=== PATIENT | female | born 1960 | race Caucasian/White ===

== ENCOUNTER → 2017-08-08 | Outpatient (CLI) | payer BC ==
--- NOTE | 2017-08-08 11:37 | MM ---
Reason for exam: screening (asymptomatic). Last mammogram was performed 1 year and 2 months ago. History: Patient is postmenopausal and is nulliparous. Took hormonal contraceptives for 22 years 4 months beginning at age 30. Physical Findings: A clinical breast exam by your physician is recommended on an annual basis and results should be correlated with mammographic findings. MG Screening Mammo w CAD Bilateral CC and MLO view(s) were taken. Prior study comparison: May 24, 2016, bilateral MG screening mammo w CAD. November 23, 2014, bilateral MG screening mammo w CAD. The breast tissue is heterogeneously dense. This may lower the sensitivity of mammography. There is chronic nodularity bilaterally. There is no discrete abnormality. ASSESSMENT: Benign, BI-RAD 2 RECOMMENDATION: Routine screening mammogram of both breasts in 1 year.
== END | disposition home or self-care (01) ==
LOC: RADMAMWWP 07:16
PROVIDERS: ATTEND Obstetrics & Gynecology
DX: Z12.31 Encounter for screening mammogram for malignant neoplasm of breast (principal)

== ENCOUNTER → 2018-01-18 | Outpatient (CLI) | payer BC ==
--- NOTE | 2018-01-18 10:41 | US ---
EXAMINATION TYPE: US thyroid st tissue head/neck DATE OF EXAM: 01/18/2018 COMPARISON: US CLINICAL HISTORY: E04.1 Thyroid Nodule. GLAND SIZE: Right Lobe: 4.9 x 1.6 x 1.2 cm Overall Parenchyma: homogenous Left Lobe: 3.8 x 1.0 x 1.0 cm Overall Parenchyma: homogeneous Isthmus Thickness: 2.2 cm NODULES RIGHT: # of nodules measured on right: 0 LEFT: # of nodules measured on left: 2 1. 0.6 X 0.4 x 0.4 cm isoechoic solid nodule at the upper pole with well-defined margins. This nod ule is wide as is tall and shows intranodular vascularity. Prior size: none seen 2. 0.5 X 0.5 x 0.4 cm hypoechoic mixed nodule at the upper pole with well-defined margins. This nod ule is wider than tall and shows intranodular vascularity. Prior size: none seen ISTHMUS: # of nodules measured in the isthmus: 1 1. 4.2 X 3.7 x 2.4 cm mixed nodule at the isthmus with well-defined margins. This nodule is wider than tall and shows intranodular vascularity. Prior size: 3.5 x 2.1 x 3.3 cm Bilateral neck scanned, no evidence of lymphadenopathy. IMPRESSION: Nonspecific thyroid nodularity. The need to biopsy should be made on a clinical basis.
== END | disposition home or self-care (01) ==
LOC: RADUSWWP 09:51
PROVIDERS: ATTEND Otolaryngology
DX: E04.2 Nontoxic multinodular goiter (principal)
CPT/HCPCS: 36415; 76536; 84443

== ENCOUNTER → 2018-08-14 | Outpatient (CLI) | payer BC | END | disposition home or self-care (01) | LOC: LABWHC1 10:53 | PROVIDERS: ATTEND Otolaryngology | DX: E04.1 Nontoxic single thyroid nodule (principal) | CPT/HCPCS: 36415; 84443 ==

== ENCOUNTER → 2018-08-14 | Outpatient (CLI) | payer BC ==
--- NOTE | 2018-08-15 14:03 | MM ---
Reason for exam: screening (asymptomatic). Last mammogram was performed 1 year ago. History: Patient is postmenopausal and is nulliparous. Took hormonal contraceptives for 22 years 4 months beginning at age 30. Physical Findings: A clinical breast exam by your physician is recommended on an annual basis and results should be correlated with mammographic findings. MG Screening Mammo w CAD Bilateral CC and MLO view(s) were taken. Prior study comparison: August 08, 2017, bilateral MG screening mammo w CAD. May 24, 2016, bilateral MG screening mammo w CAD. The breast tissue is heterogeneously dense. This may lower the sensitivity of mammography. No suspicious abnormality. No significant changes when compared with prior studies. ASSESSMENT: Negative, BI-RAD 1 RECOMMENDATION: Routine screening mammogram of both breasts in 1 year.
== END | disposition home or self-care (01) ==
LOC: RADMAMWWP 10:39
PROVIDERS: ATTEND Obstetrics & Gynecology
DX: Z12.31 Encounter for screening mammogram for malignant neoplasm of breast (principal)
CPT/HCPCS: 77067

== ENCOUNTER → 2018-12-09 | Outpatient (CLI) | payer BC ==
--- NOTE | 2018-12-09 07:58 | US ---
EXAMINATION TYPE: US thyroid st tissue head/neck DATE OF EXAM: 12/09/2018 COMPARISON: Thyroid ultrasound January 18, 2018 and older ultrasounds. CLINICAL HISTORY: E04.1 Thyroid Nodule. follow up exam, patient states previous bx on nodule, not on meds GLAND SIZE: Right Lobe: 4.9 x 1.1 x 1.6 cm Overall Parenchyma: homogenous Left Lobe: unable to discern Isthmus Thickness: 0.7 cm NODULES RIGHT: # of nodules measured on right: 0 LEFT: # of nodules measured on left: unable to discern due to large size of isthmus nodule ISTHMUS: # of nodules measured in the isthmus: 1 1. 5.1 X 4.4 x 2.8 cm solid nodule with well-defined margins. This nodule is wider than tall and sh ows intranodular vascularity. Prior size: 4.2 x 3.7 x 2.4 cm Bilateral neck scanned, no evidence of lymphadenopathy. IMPRESSION: Continued enlargement of dominant left-sided isthmus nodule measuring up to 5.1 cm long axis versus 4 .2 cm 2017 and 3.1 cm 2011, last sampling was performed 2011. Consider repeat FNA.
== END | disposition home or self-care (01) ==
LOC: RADUSWWP 06:52
PROVIDERS: ATTEND Otolaryngology
DX: E04.1 Nontoxic single thyroid nodule (principal)
CPT/HCPCS: 76536

== ENCOUNTER 2019-01-09 09:11 | Day surgery (SDC) | payer BC ==
[2019-01-09 09:33] VITALS: TEMP 98.5
[2019-01-09 10:54] VITALS: BP 133/76; PULSE 84; RESP 16
--- NOTE | 2019-01-09 12:03 | US ---
EXAMINATION TYPE: US FNA thyroid first lesion DATE OF EXAM: 01/09/2019 COMPARISON: Ultrasound thyroid 12/09/2017 HISTORY: Thyroid nodule, E04.1 Maximal barrier technique was utilized. Ultrasound using sterile technique. The skin overlying the no dule was localized with ultrasound and the overlying skin prepped and draped. Lidocaine used for loca l anesthesia. 5 passes with a 25-gauge needle were made into the nodule under ultrasound guidance. As pirate specimen submitted to cytology. Following the procedure hemostasis achieved. No immediate comp lication IMPRESSION: Status post ultrasound-guided fine-needle aspiration of thyroid nodule in the isthmus, derek thology pending.
== END 2019-01-09 10:53 | disposition home or self-care (01) ==
LOC: RADPROMAIN 09:11
PROVIDERS: ATTEND Otolaryngology
DX: E04.1 Nontoxic single thyroid nodule (principal)
CPT/HCPCS: 10005; 88173; 88305

== ENCOUNTER → 2019-07-30 | Outpatient (CLI) | payer BC ==
--- NOTE | 2019-07-30 08:58 | US ---
EXAMINATION TYPE: US thyroid st tissue head/neck DATE OF EXAM: 07/30/2019 COMPARISON: Thyroid ultrasound dated 12/09/2018 CLINICAL HISTORY: E04.1 Thyroid nodule. Follow up nodule GLAND SIZE: Right Lobe: 5.0 x 1.6 x 1.6 cm Overall Parenchyma: heterogenous Left Lobe: 3.8 x 1.3 x 1.2 cm Overall Parenchyma: heterogeneous Isthmus Thickness: 0.8 cm NODULES RIGHT: # of nodules measured on right: 0 LEFT: # of nodules measured on left: 0 ISTHMUS: # of nodules measured in the isthmus: 1 1. 4.8 X 4.4 x 2.5 cm Complex nodule with well-defined margins. This nodule is wider than tall an d shows intranodular vascularity. Prior size: 5.1 x 4.4 x 2.8 cm Bilateral neck scanned, no evidence of lymphadenopathy. Bilateral lobes appear hypervascular IMPRESSION: Similar size of the complex right thyroid nodule, appearing to have been biopsied on the exam of 2018. The thyroid gland does appear heterogenous throughout and hypervascular. Correlate for thyroidi tis.
== END | disposition home or self-care (01) ==
LOC: RADUSWWP 07:04
PROVIDERS: ATTEND Otolaryngology
DX: E04.1 Nontoxic single thyroid nodule (principal)
CPT/HCPCS: 76536

== ENCOUNTER → 2019-08-14 | Outpatient (CLI) | payer BC | LOC: LABWHC1 08:15 | PROVIDERS: ATTEND Otolaryngology | DX: E04.1 Nontoxic single thyroid nodule (principal) | CPT/HCPCS: 36415; 84443 ==

== ENCOUNTER → 2019-10-14 | Outpatient (CLI) | payer BC ==
--- NOTE | 2019-10-15 11:51 | MM ---
Reason for exam: screening (asymptomatic). Last mammogram was performed 1 year and 2 months ago. History: Patient is postmenopausal and is nulliparous. Took hormonal contraceptives for 22 years 4 months beginning at age 30. Physical Findings: A clinical breast exam by your physician is recommended on an annual basis and results should be correlated with mammographic findings. MG Screening Mammo w CAD Bilateral CC and MLO view(s) were taken. Prior study comparison: August 14, 2018, bilateral MG screening mammo w CAD. August 08, 2017, bilateral MG screening mammo w CAD. The breast tissue is heterogeneously dense. This may lower the sensitivity of mammography. No suspicious abnormality. No significant changes when compared with prior studies. ASSESSMENT: Negative, BI-RAD 1 RECOMMENDATION: Routine screening mammogram of both breasts in 1 year.
== END | disposition home or self-care (01) ==
LOC: RADMAMWWP 06:56
PROVIDERS: ATTEND Obstetrics & Gynecology
DX: Z12.31 Encounter for screening mammogram for malignant neoplasm of breast (principal)
CPT/HCPCS: 77067

== ENCOUNTER → 2020-07-23 | Outpatient (CLI) | payer BC ==
[2020-07-23 16:05] LABS: Chol/HDL Ratio 3.38; LDL Cholesterol,Calculated 110.4 mg/dL (0.0-131.0); VLDL Calculation 27.6 mg/dL (5.00-40.00)
== END | disposition home or self-care (01) ==
LOC: LABWHC1 09:11
PROVIDERS: ATTEND Internal Medicine
DX: I83.813 Varicose veins of bilateral lower extremities with pain (principal); G47.33 Obstructive sleep apnea (adult) (pediatric); M79.89 Other specified soft tissue disorders; Z82.49 Family history of ischemic heart disease and other diseases of the circulatory system; R06.00 Dyspnea, unspecified
CPT/HCPCS: 36415; 80061

== ENCOUNTER → 2020-10-25 | Outpatient (CLI) | payer MEDICARE ==
--- NOTE | 2020-10-25 08:12 | US ---
EXAMINATION TYPE: US thyroid st tissue head/neck DATE OF EXAM: 10/25/2020 COMPARISON: 07/30/2019 CLINICAL HISTORY: 59-year-old female E04.1 thyroid nodule. History of single large nodule, no symptom s per patient TECHNIQUE: Multiple sonographic images of the thyroid gland are obtained. FINDINGS: GLAND SIZE: Right Lobe: 5.0 x 1.1 x 1.9 cm Overall Parenchyma: homogenous Left Lobe: 5.3 x 6.1 x 3.5 cm Overall Parenchyma: heterogeneous Isthmus Thickness: 1.1 cm (thickened) NODULES RIGHT: # of nodules measured on right: 0 LEFT: # of nodules measured on left: At the left isthmus 1. 4.5 X 5.2 x 3.1 cm solid or almost completely solid, nodule, heterogeneous isoechoic nodule whic h is wider than tall, with smooth margins, without echogenic foci. Prior size: 4.8 x 4.4 x 2.8 cm ISTHMUS: # of nodules measured in the isthmus: 0 Bilateral neck scanned, no evidence of lymphadenopathy. IMPRESSION: 1. Thyromegaly with mild heterogeneous parenchyma. Correlate for goiter. 2. Dominant large 5.2 x 4.5 cm TR3 left isthmic nodule shows slight increase in size (previously 4.8 x 4.4 cm).
== END | disposition home or self-care (01) ==
LOC: RADUSWWP 07:34
PROVIDERS: ATTEND Otolaryngology
DX: E04.2 Nontoxic multinodular goiter (principal)
CPT/HCPCS: 76536

== ENCOUNTER → 2020-11-03 | Outpatient (CLI) | payer MEDICARE ==
[~2020-11-03] MED LIST: REGADENOSON 0.4 MG/5 ML SYRINGE IV PRN
--- NOTE | 2020-11-03 10:42 | ECHOF ---
Referral Reason:G47.33 NATACHA, J45.998 Allergy induced asthma MEASUREMENTS -------- HEIGHT: 172.7 cm WEIGHT: 83.9 kg BP: RVIDd: 2.7 cm (< 3.3) IVSd: 1.1 cm (0.6 - 1.1) LVIDd: 4.0 cm (3.9 - 5.3) LVPWd: 1.1 cm (0.6 - 1.1) IVSs: 1.8 cm LVIDs: 2.1 cm LVPWs: 1.7 cm LAESV Index (A-L): 16.48 ml/m Ao Diam: 2.9 cm (2.0 - 3.7) AV Cusp: 2.0 cm (1.5 - 2.6) LA Diam: 2.7 cm (2.7 - 3.8) MV EXCURSION: 26.030 mm (> 18.000) MV EF SLOPE: 95 mm/s (70 - 150) EPSS: 0.5 cm MV E Hollis: 0.97 m/s MV DecT: 213 ms MV A Hollis: 0.85 m/s MV E/A Ratio: 1.14 RAP: 5.00 mmHg RVSP: 16.30 mmHg FINDINGS -------- This was a technically good study. The left ventricular size is normal. Left ventricular wall thickness is normal. Overall left vent ricular systolic function is normal with, an EF between 55 - 60 %. The diastolic filling pattern is normal for the age of the patient 11.63. False Tendon Visualized in the LV The right ventricle is normal in size. The left atrial size is normal. Normal LA size by volume 22+/-6 ml/m2. The right atrial size is normal. Interatrial and interventricular septum intact. The aortic valve is trileaflet and appears structurally normal. The mitral valve is normal. The mitral valve leaflets are mildly thickened. There is trace mitral regurgitation. The tricuspid valve appears structurally normal. Trace tricuspid regurgitation present. Right yeimy tricular systolic pressure is normal at < 35 mmHg. There is no pulmonic regurgitation present. The aortic root size is normal. Normal inferior vena cava with normal inspiratory collapse consistent with estimated right atrial pre ssure of 5 mmHg. There is no pericardial effusion. CONCLUSIONS -------- 1. The left ventricular size is normal. 2. Left ventricular wall thickness is normal. 3. Overall left ventricular systolic function is normal with, an EF between 55 - 60 %. 4. The diastolic filling pattern is normal for the age of the patient 11.63 5. False Tendon Visualized in the LV 6. The mitral valve leaflets are mildly thickened. 7. There is trace mitral regurgitation. 8. Trace tricuspid regurgitation present. 9. There is no pericardial effusion. CLINICAL CYTOGENETICS DIRECTOR: Charlee Meier RDCS
--- NOTE | 2020-11-03 11:10 | NM ---
EXAMINATION TYPE: NM stress lexiscan cardiolite DATE OF EXAM: 11/03/2020 COMPARISON: NONE HISTORY: G 47.33, J 45.998 TECHNIQUE: After the intravenous administration of 9.4 mCi Tc 99m Sestamibi - Cardiolite resting SPE CT images acquired 50 minutes post injection. The patient received 0.4mg Lexiscan, 25.3 mCi Tc 99m Sestamibi - Stress images obtained [address] injection FINDINGS: Review of stress and rest SPECT images demonstrates mild decreased uptake along anterior wall left ve ntricle on stress as compared to rest images. Gated analysis shows a questionable paradoxical apical wall motion with an estimated left ventricular ejection fraction of 56 %. IMPRESSION: Pharmacologically induced left ventricular myocardial ischemia, consider echocardiogram for correlati on for wall motion. A Yellow level critical message alert has been initiated for Torsten Moody DO via the [employer] Critical Results System on 11/03/2020 11:07 AM. This message alert has been sent to Torsten Moody DO vi a the preferences provided by the clinician for the receipt of Radiology Critical Findings. Message I D [id number].
--- NOTE | 2020-11-03 11:34 | EST ---
EXERCISE STRESS AGE: 59 SEX: Female HT: 5'8" WT: 185 lbs. PROTOCOL: Lexiscan STAGE: N/A DURATION OF EXERCISE: N/A HEART RATE REST: 59 BLOOD PRESSURE REST: 128/66 MAXIMUM HEART RATE ACHIEVED: 89 MAXIMUM BLOOD PRESSURE: 128/66 85% MPHR: 138 100% MPHR: 162 METS: N/A INDICATIONS: Chest pain. CLINICAL INFORMATION: Baseline EKG shows sinus rhythm, normal axis, normal intervals. Patient was given intravenous Lexiscan as per protocol. Did not have chest pain or diagnostic ST-segment depression. CONCLUSIONS: 1. Negative stress test by EKG criteria. 2. Cardiolite portion of the stress test will be reported separately. MMODL / IJN: [id number] /
== END | disposition home or self-care (01) ==
LOC: RADNMMAIN 07:44
PROVIDERS: ATTEND Family Medicine
DX: I05.8 Other rheumatic mitral valve diseases (principal); I25.9 Chronic ischemic heart disease, unspecified; G47.33 Obstructive sleep apnea (adult) (pediatric); J45.998 Other asthma; Z88.2 Allergy status to sulfonamides
CPT/HCPCS: 93017; 93306; 78452; A9500; J2785

== ENCOUNTER → 2020-12-03 | Outpatient (CLI) | payer MEDICARE ==
--- NOTE | 2020-12-06 10:16 | MM ---
Reason for exam: screening (asymptomatic). Last mammogram was performed 1 year and 2 months ago. History: Patient is postmenopausal and is nulliparous. Took hormonal contraceptives for 22 years 4 months beginning at age 30. Physical Findings: A clinical breast exam by your physician is recommended on an annual basis and results should be correlated with mammographic findings. MG 3D Screening Mammo W/Cad Bilateral CC and MLO view(s) were taken. Prior study comparison: October 14, 2019, bilateral MG screening mammo w CAD. August 14, 2018, bilateral MG screening mammo w CAD. The breast tissue is heterogeneously dense. This may lower the sensitivity of mammography. There is chronic nodularity bilaterally. There is no dominant lesion. No significant changes when compared with prior studies. ASSESSMENT: Benign, BI-RAD 2 RECOMMENDATION: Routine screening mammogram of both breasts in 1 year.
== END | disposition home or self-care (01) ==
LOC: RADMAMWWP 10:15
PROVIDERS: ATTEND Obstetrics & Gynecology
DX: Z12.31 Encounter for screening mammogram for malignant neoplasm of breast (principal)
CPT/HCPCS: 77063; 77067

== ENCOUNTER → 2021-12-19 | Outpatient (CLI) | payer MEDICARE ==
--- NOTE | 2021-12-19 07:52 | US ---
EXAMINATION TYPE: US thyroid st tissue head/neck DATE OF EXAM: 12/19/2021 COMPARISON: NONE CLINICAL HISTORY: E04.1 NONTOXIC SINGLE THYROID NODULE. follow up thyroid nodule GLAND SIZE: Right Lobe: 5.4 x 1.7 x 1.7 cm Overall Parenchyma: homogenous Left Lobe: 5.9 x 3.5 x 5.1cm Overall Parenchyma: heterogeneous Isthmus Thickness: 1.0 cm NODULES RIGHT: # of nodules measured on right: 0 LEFT: # of nodules measured on left: left isthmus 1. 4.8 X 3.1 x 5.4 cm, solid or almost completely solid, isoechoic nodule, which is wider than tall , with smooth margins, without echogenic foci. Prior size: 4.5 x 3.1x 5.2cm ISTHMUS: # of nodules measured in the isthmus: 0 Bilateral neck scanned, no evidence of lymphadenopathy. IMPRESSION: Stable predominantly solid nodule left thyroid lobe. 2017 ACR TI-RADS LEVEL: *Highest TI-RADS level nodule reported
== END | disposition home or self-care (01) ==
LOC: RADUSWWP 06:38
PROVIDERS: ATTEND Otolaryngology
DX: E04.1 Nontoxic single thyroid nodule (principal)
CPT/HCPCS: 76536

== ENCOUNTER 2022-06-23 10:01 | Day surgery (SDC) | payer MEDICARE ==
[2022-06-21 16:02] VITALS: BMI 28.1
[2022-06-23 11:00] VITALS: TEMP 97.6
[2022-06-23] MEDS: LACTATED RINGERS 1,000 ML IV SCH ×3 (11:16→13:00)
[2022-06-23] MEDS ORDERED: PROPOFOL 10 MG/ML 20 ML VIAL IV ONE (12:10)
--- NOTE | 2022-06-23 12:24 | P.PCN ---
Date of Procedure: 06/23/22 Procedure(s) Performed: BRIEF HISTORY: Patient is a 61-year-old pleasant 6 female scheduled for an elective colonoscopy as a part of screening for colorectal neoplasia. PROCEDURE PERFORMED: Colonoscopy with snare polypectomy. PREOPERATIVE DIAGNOSIS: Screening for colon cancer. IV sedation per Anesthesia. PROCEDURE: After informed consent was obtained, the patient, was brought into the endoscopy unit. IV sedation was administered by Anesthesia under continuous monitoring. Digital rectal examination was normal. Initially the Olympus CF-160 flexible video colonoscope was then inserted in the rectum, gradually advanced into the cecum without any difficulty. Careful examination was performed as the scope was gradually being withdrawn. Ileocecal valve and the appendiceal orifice were visualized and appeared normal. Prep was excellent. Mucosa of the cecum, ascending colon, transverse colon, appeared normal. In the descending colon there was a 7 mm polyp removed by snare polypectomy. Rest of the descending colon, sigmoid colon, and rectum appeared normal. Retroflexion was performed in the rectum and no lesions were seen. The patient tolerated the procedure well. IMPRESSION: 7 mm descending colon polyp status post polypectomy Rest of the colon appeared normal RECOMMENDATIONS: Findings of this examination were discussed with the patient as well as a family. She was advised to follow with the biopsy results. If the biopsies adenoma she can have a repeat colonoscopy in 5 years..
[2022-06-23 12:50] VITALS: BP 129/81; PULSE 72; RESP 18
== END 2022-06-23 13:18 | disposition home or self-care (01) ==
LOC: ORWHC2ENDO 10:01
PROVIDERS: ATTEND Internal Medicine Gastroenterology
DX: Z12.11 Encounter for screening for malignant neoplasm of colon (principal); D12.4 Benign neoplasm of descending colon; G47.33 Obstructive sleep apnea (adult) (pediatric); E04.1 Nontoxic single thyroid nodule; F41.9 Anxiety disorder, unspecified; F32.A Depression, unspecified; Z88.2 Allergy status to sulfonamides; Z79.899 Other long term (current) drug therapy
CPT/HCPCS: 88305; 45385; J2704

== ENCOUNTER → 2023-02-13 | Outpatient (CLI) | payer MEDICARE ==
--- NOTE | 2023-02-13 08:32 | US ---
EXAMINATION TYPE: US thyroid st tissue head/neck DATE OF EXAM: 02/13/2023 COMPARISON: 12/19/2021 CLINICAL INDICATION: Female, 62 years old with history of E04.1 SINGLE THYROID NODULE; Follow up thyr oid nodule GLAND SIZE: Right Lobe: 4.9 x 1.7 x 1.9 cm Overall Parenchyma: homogenous Left Lobe: 6.4 x 3.4 x 3.4 cm Overall Parenchyma: heterogenous Isthmus Thickness: 0.5 cm NODULES RIGHT: # of nodules measured on right: 0 LEFT: # of nodules measured on left: left isthmus 1. 5.1 X 3.9 x 6.2 cm, , solid or almost completely solid, isoechoic TR 3 nodule, which is wider th an tall, with smooth margins, without echogenic foci. Prior size: 4.8 x 3.1 x 5.4 cm ISTHMUS: # of nodules measured in the isthmus: 0 Bilateral neck scanned, no evidence of lymphadenopathy. IMPRESSION: Enlarging solid TR3 nodule in the left thyroid isthmus currently measuring 6.2 x 5.1 cm (versus 5.4 x 4.8 cm, previously). This meets criteria for FNA.
== END | disposition home or self-care (01) ==
LOC: RADUSWWP 06:59
PROVIDERS: ATTEND Otolaryngology
DX: E04.1 Nontoxic single thyroid nodule (principal)
CPT/HCPCS: 76536

== ENCOUNTER → 2023-02-13 | Outpatient (CLI) | payer MEDICARE ==
--- NOTE | 2023-02-13 08:15 | MM ---
Reason for Exam: Screening (asymptomatic). Last mammogram was performed 1 year(s) and 1 month(s) ago. Patient History: Menarche at age 13. Patient has no children. Postmenopausal. Hormonal Contraceptives for 22 years, 4 months, until age 49. Risk Values: Lauren 5 year model risk: 1.6%. NCI Lifetime model risk: 7.9%. Prior Study Comparison: 10/14/2019 Bilateral Screening Mammogram, [facility]. 12/03/2020 Bilateral Screening Mammogram, [facility]. 01/17/2022 Bilateral Screening Mammogram, [facility]. Tissue Density: The breast tissue is heterogeneously dense. This may lower the sensitivity of mammography. Findings: Analyzed By CAD. There is no suspicious group of microcalcifications or new suspicious mass in either breast. Overall Assessment: Negative, BI-RAD 1 Management: Screening Mammogram of both breasts in 1 year. . Patient should continue monthly self-breast exams. A clinical breast exam by your physician is recommended on an annual basis. This exam should not preclude additional follow-up of suspicious palpable abnormalities. Note on Lauren scores and lifetime risk: 1. A Lauren score greater than 3% is considered moderate risk. If this is the case, consider specialist referral to assess eligibility for a risk reducing agent. 2. If overall lifetime risk for the development of breast cancer is 20% or higher, the patient may qualify for future screening with alternating mammogram and breast MRI. Electronically signed and approved by: Randall Keating M.D. Radiologis
== END | disposition home or self-care (01) ==
LOC: RADMAMWWP 06:57
PROVIDERS: ATTEND Obstetrics & Gynecology
DX: Z12.31 Encounter for screening mammogram for malignant neoplasm of breast (principal); Z78.0 Asymptomatic menopausal state
CPT/HCPCS: 77063; 77067

== ENCOUNTER → 2023-04-04 | Outpatient (CLI) | payer MEDICARE ==
--- NOTE | 2023-04-04 13:50 | CT ---
EXAMINATION TYPE: CT chest w con DATE OF EXAM: 04/04/2023 COMPARISON: Radiographs 03/28/2023, thyroid ultrasound 02/13/2023 HISTORY: 62-year-old female R05.3, chronic cough Chronic cough. TECHNIQUE: Contiguous axial scanning of the chest after the administration of 100ml mL of Isovue 300. Coronal/sagittal reconstructions performed. CT DLP: 298.6mGycm. Automatic exposure control utilized for a dose reduction. FINDINGS: Nodular enlargement of the thyroid gland especially the left lobe. Please refer to thyroid ultrasound report from 02/13/2023. Heart normal size without pericardial effusion. Prominent epicardial fat pad along the right side of the heart. Aorta normal size. Bovine configuration to the aortic arch. No thoracic lymphadenopathy by CT size criteria. Some strandy atelectasis at the lung bases. Nodularity at the anteromedial right lower lung measuring 8 mm. A couple of satellite nodules here measure up to 4 mm. No consolidation or pleural effusion. Visualized upper abdomen shows no gross abnormality. Bones: No osseous destructive process. IMPRESSION: 1. Some nodularity at the anteromedial right lower lung measuring up to 8 mm. Recommended 3-6 month f ollow-up CT chest to reassess. 2. Some strandy atelectasis at the lung bases. No infiltrate to indicate pneumonia. 3. Refer to findings on thyroid ultrasound of 02/13/2023 for potential further intervention.
== END | disposition home or self-care (01) ==
LOC: RADCTMAIN 09:19
PROVIDERS: ATTEND Internal Medicine
DX: R91.1 Solitary pulmonary nodule (principal); R05.3 Chronic cough
CPT/HCPCS: 71260; Q9967

== ENCOUNTER → 2023-08-03 | Outpatient (CLI) | payer MEDICARE ==
--- NOTE | 2023-08-03 09:59 | CT ---
EXAMINATION TYPE: CT soft tissue neck w con DATE OF EXAM: 08/03/2023 COMPARISON: None HISTORY: 62 year-old female E04.9, nontoxic goiter TECHNIQUE: Contiguous axial scanning of the soft tissues of the neck performed with IV Contrast, carey ent injected with 100 mL of Isovue 300. Coronal/sagittal reconstructions performed. CT DLP: 510.7 mGycm Automated exposure control for dose reduction was used. FINDINGS: Marked heterogeneous enlargement of the thyroid gland. Difficult to delineate discrete nodules due to the degree of heterogeneity. Suspect left-sided nodule measuring up to 3.5 cm. Right-sided nodule po ssibly measuring up to 4.1 cm. Thyroid gland measures up to 7.4 cm craniocaudal. There is asymmetric greater degree of nodularity of the left lobe causing some rightward tracheal deviation. There is als o mass effect on to the anterior wall of the esophagus. Visualized intercranial structures, orbits and globes, paranasal sinuses, and mastoid air cells well pneumatized. Nasal pharynx is clear. Mild bilateral palatine tonsillar hypertrophy. Dental amalgam artifact. Epiglottis and prevertebral soft tissues are satisfactory. Gliotic and subglottic structures as well as the visualized upper lungs are clear. Submandibular and parotid glands appears her satisfactory. Scattered nonenlarged lymph nodes are present on both sides of the neck. Reversal normal cervical lordosis with preserved alignment. Costophrenic complex may contribute to mo derate focal spinal canal stenosis at C5-C6. IMPRESSION: 1. MARKEDLY HETEROGENEOUS THYROID GOITER. THYROID GLAND MEASURES UP TO 7.4 CM. THE DEGREE OF HETEROGE NEITY MAKES IT DIFFICULT TO DELINEATE DISCRETE NODULES BUT A RIGHT NODULE MAY MEASURE UP TO 4.1 CM AN D A LEFT NODULE MAY MEASURE UP TO 3.5 CM. 2. THIS HAS MASS EFFECT WITH RIGHTWARD TRACHEAL DEVIATION BUT NO AIRWAY NARROWING. 3. ADDITIONAL MASS EFFECT ONTO THE ANTERIOR WALL OF THE ESOPHAGUS. CORRELATE FOR ANY DIFFICULTY SWALL OWING.
== END | disposition home or self-care (01) ==
LOC: RADCTMAIN 08:07
PROVIDERS: ATTEND Otolaryngology
DX: E04.2 Nontoxic multinodular goiter (principal); J39.8 Other specified diseases of upper respiratory tract; K22.89 Other specified disease of esophagus
CPT/HCPCS: 70491; Q9967

== ENCOUNTER → 2023-12-27 | Outpatient (CLI) | payer MEDICARE ==
[2023-12-27 16:21] LABS: T4, Free (Free Thyroxine) 1.56 ng/dL (0.80-1.80)
== END | disposition home or self-care (01) ==
LOC: LABWHC1 11:44
PROVIDERS: ATTEND Internal Medicine
DX: E04.1 Nontoxic single thyroid nodule (principal)
CPT/HCPCS: 36415; 84439; 84443

== ENCOUNTER → 2024-02-18 | Outpatient (CLI) | payer MEDICARE ==
--- NOTE | 2024-02-19 09:08 | MM ---
Reason for Exam: Screening (asymptomatic). Last screening mammogram was performed 12 month(s) ago. Patient History: Menarche at age 13. Patient has no children. Postmenopausal. Hormonal Contraceptives for 22 years, 4 months, until age 49. Risk Values: Lauren 5 year model risk: 1.7%. NCI Lifetime model risk: 7.7%. Prior Study Comparison: 12/03/2020 Bilateral Screening Mammogram, [facility]. 01/17/2022 Bilateral Screening Mammogram, [facility]. 02/13/2023 Bilateral MG 3D screening mammo w/cad, [facility]. Tissue Density: The breasts are heterogeneously dense, which may obscure small masses. Findings: Analyzed By CAD. There is no suspicious group of microcalcifications or new suspicious mass in either breast. Overall Assessment: Benign, BI-RAD 2 Management: Screening Mammogram of both breasts in 1 year. . Patient should continue monthly self-breast exams. A clinical breast exam by your physician is recommended on an annual basis. This exam should not preclude additional follow-up of suspicious palpable abnormalities. Note on Lauren scores and lifetime risk: 1. A Lauren score greater than 3% is considered moderate risk. If this is the case, consider specialist referral to assess eligibility for a risk reducing agent. 2. If overall lifetime risk for the development of breast cancer is 20% or higher, the patient may qualify for future screening with alternating mammogram and breast MRI. Electronically signed and approved by: Randall Keating M.D. Radiologis
== END | disposition home or self-care (01) ==
LOC: RADMAMWWP 07:24
PROVIDERS: ATTEND Family Medicine
DX: Z12.31 Encounter for screening mammogram for malignant neoplasm of breast (principal); Z78.0 Asymptomatic menopausal state
CPT/HCPCS: 77063; 77067

== ENCOUNTER → 2025-03-23 | Outpatient (CLI) | payer MEDICARE ==
--- NOTE | 2025-03-23 10:01 | MM ---
Reason for Exam: Screening (asymptomatic). Last mammogram was performed 1 year(s) and 1 month(s) ago. Patient History: Menarche at age 13. Patient has no children. Postmenopausal. Hormonal Contraceptives for 22 years, 4 months, until age 49. Risk Values: Lauren 5 year model risk: 1.7%. NCI Lifetime model risk: 7.4%. Prior Study Comparison: 01/17/2022 Bilateral Screening Mammogram, [facility]. 02/13/2023 Bilateral MG 3D screening mammo w/cad, [facility]. 02/18/2024 Bilateral MG 3D screening mammo w/cad, [facility]. Tissue Density: The breasts are heterogeneously dense, which may obscure small masses. Findings: Analyzed By CAD. There is no suspicious group of microcalcifications or new suspicious mass in either breast. Overall Assessment: Benign, BI-RAD 2 Management: Screening Mammogram of both breasts in 1 year. Patient should continue monthly self-breast exams. A clinical breast exam by your physician is recommended on an annual basis. This exam should not preclude additional follow-up of suspicious palpable abnormalities. Note on Lauren scores and lifetime risk: 1. A Lauren score greater than 3% is considered moderate risk. If this is the case, consider specialist referral to assess eligibility for a risk reducing agent. 2. If overall lifetime risk for the development of breast cancer is 20% or higher, the patient may qualify for future screening with alternating mammogram and breast MRI. [facility], , 03/23/2025 8:04 AM. Electronically signed and approved by: Randall Keating M.D. Radiolog[facility]
== END | disposition home or self-care (01) ==
LOC: RADMAMWWP 06:53
PROVIDERS: ATTEND Family Medicine
DX: Z12.31 Encounter for screening mammogram for malignant neoplasm of breast (principal); R92.333 Mammographic heterogeneous density, bilateral breasts; Z78.0 Asymptomatic menopausal state; Z92.0 Personal history of contraception
CPT/HCPCS: 77063; 77067